=== PATIENT | male | born 1960 ===

== ENCOUNTER 2018-07-25 23:10 | Emergency (ER) | payer OTHER ==
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
[2018-07-25] MEDS ORDERED: Lidocaine 5% Patch TD STA (23:45)
[2018-07-25] MEDS ORDERED: Lidocaine 5% Patch TD ONE (23:57)
[2018-07-26 01:05] VITALS: BP 110/65; PULSE 67; RESP 16; TEMP 97.6
[2018-07-26 01:08] VITALS: O2SAT 98
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
== END 2018-07-26 01:20 | disposition home or self-care (01) ==
LOC: C.ER 23:10
DX: M54.9 Dorsalgia, unspecified (principal); V89.2XXA Person injured in unspecified motor-vehicle accident, traffic, initial encounter
CPT/HCPCS: 72070; 72100; 96372; 99284; J1885